=== PATIENT | male | born 1995 | race Two or more races ===

== ENCOUNTER 2018-11-09 20:53 | Emergency (ER) | payer MEDICAID, OTHER ==
[~2018-11-09] VITALS: Ht 172.7 cm; Wt 69.5 kg
[~2018-11-09 20:53] MED LIST: SULF1TAB49 PO
[2018-11-09] MEDS ORDERED: ondansetron/PF 4mg/2ml inj IV ONE (21:10)
[2018-11-09] MEDS ORDERED: normal saline 1000ML IV soln IVB ONE (21:10)
[2018-11-09 21:35] LABS: MONOCYTES # (AUTO) 0.8 X10'3 (0-0.9)
[2018-11-09 21:36] LABS: BASOPHILS % (AUTO) 0.2 % (0-1); EOSINOPHILS % (AUTO) 0.1 % (0-6); HEMATOCRIT 52.4 % (42.0-52.0); LYMPHOCYTES # (AUTO) 0.6 X10'3 (1.1-4.8); LYMPHOCYTES % (AUTO) 4.5 % (21-51); MEAN CORPUSCULAR HEMOGLOBIN 32.1 PG (27.0-31.0); MEAN CORPUSCULAR VOLUME 91.9 FL (78-98); MEAN PLATELET VOLUME 10.1 FL (7.4-10.4); NEUTROPHILS # (AUTO) 12.1 X10'3 (1.8-7.7); NEUTROPHILS % (AUTO) 89.2 % (42-75); PLATELET COUNT 182 X10'3 (140-440); RED CELL DISTRIBUTION WIDTH 14.2 % (11.5-14.5); WHITE BLOOD COUNT 13.6 X10'3 (4.5-11.0)
[2018-11-09 21:48] LABS: ALANINE AMINOTRANSFERASE 52 U/L (12-78); ALBUMIN 5.7 G/DL (3.4-5.0); ALBUMIN/GLOBULIN RATIO 1.3 (1.1-1.5); ALKALINE PHOSPHATASE 82 IU/L (46-116); ANION GAP 17 (8-16); ASPARTATE AMINO TRANSFERASE 21 U/L (10-37); BLOOD UREA NITROGEN 21 MG/DL (7-18); BUN/CREATININE RATIO 10.7 (5.4-32.0); CHLORIDE 95 MMOL/L (99-107); CREATININE 1.96 MG/DL (0.60-1.10); GLUCOSE 132 MG/DL (70-104); MAGNESIUM 1.8 MG/DL (1.5-2.4); POTASSIUM 4.3 MMOL/L (3.5-5.1); SODIUM 137 MMOL/L (135-145); TOTAL CARBON DIOXIDE 25.3 MMOL/L (24-32); TOTAL PROTEIN 10.2 G/DL (6.4-8.2); eGFR 42 ML/MIN
[2018-11-09 22:13] LABS: HEMOGLOBIN 18.3 g/dl (14.0-17.9)
[2018-11-09] MEDS ORDERED: normal saline 1000ml 1,000 ML IV ONE (22:15)
[2018-11-09 23:29] VITALS: BP 127/81
== END 2018-11-09 23:31 | disposition home or self-care (01) ==
LOC: ER 20:53
DX: E86.0 Dehydration (principal); N28.9 Disorder of kidney and ureter, unspecified; F12.90 Cannabis use, unspecified, uncomplicated
CPT/HCPCS: 36415; 80053; 83735; 85025; 96374; 99283; J2405; J7030

== ENCOUNTER 2020-02-16 16:50 | Emergency (ER) | payer MEDICAID ==
--- NOTE | 2020-02-16 17:40 | NUR ---
patient was seen and assessed by provider
== END 2020-02-16 17:40 | disposition home or self-care (01) ==
LOC: ER 16:51
DX: R05 Cough (principal); R43.8 Other disturbances of smell and taste; R50.9 Fever, unspecified; Z20.828 Contact with and (suspected) exposure to other viral communicable diseases; F12.90 Cannabis use, unspecified, uncomplicated; F19.90 Other psychoactive substance use, unspecified, uncomplicated; Z79.2 Long term (current) use of antibiotics
CPT/HCPCS: 36415; 87635; 99283

== ENCOUNTER 2020-03-17 12:37 | Emergency (ER) | payer MEDICAID ==
[~2020-03-17] VITALS: Ht 172.7 cm; Wt 71.0 kg
[2020-03-17 12:54] VITALS: BP 143/94
[2020-03-17] MEDS ORDERED: cyclobenzaprine 10mg tablet PO ONE (13:25)
[2020-03-17] MEDS ORDERED: ibuprofen tablet 400 MG TABLET PO ONE (13:25)
[2020-03-17] MEDS ORDERED: ibuprofen 200mg tablet PO ONE (13:30)
[2020-03-17] MEDS ORDERED: ALBU8HFA PO (13:30)
== END 2020-03-17 13:36 | disposition home or self-care (01) ==
LOC: ER 12:38
DX: S39.012A Strain of muscle, fascia and tendon of lower back, initial encounter (principal); F12.10 Cannabis abuse, uncomplicated; W18.39XA Other fall on same level, initial encounter; Y93.89 Activity, other specified; Y92.89 Other specified places as the place of occurrence of the external cause; Y99.8 Other external cause status
CPT/HCPCS: 99283

== ENCOUNTER 2020-05-09 19:04 | Emergency (ER) | payer MEDICAID ==
[~2020-05-09] VITALS: Ht 170.2 cm; Wt 77.3 kg
--- NOTE | 2020-05-09 19:23 | NUR ---
PT O2 SAT WAS 88% ON RA WHEN PT ARRIVED APPLIED 3L O2 VIA NC RAISED O2 SAT TO 90% CHARGE NURSE IS AWARE. WAITING ON ROOM FOR PT TRIAGE NURSE IS MONITORING PT UNTIL ROOM IS AVAILABLE IN MAIN ED
[2020-05-09] MEDS ORDERED: predniSONE 20 mg tablet PO ONE (19:35)
[2020-05-09] MEDS ORDERED: albuterol 2.5 MG/3 ML nebule NEB ONE ×2 (19:35→20:25)
--- NOTE | 2020-05-09 19:37 | NUR ---
RT PAGED AWAITING RESPONSE
--- NOTE | 2020-05-09 19:40 | NUR ---
DR DOUGLAS AT [facility] VERIFIED CXR
--- NOTE | 2020-05-09 19:43 | NUR ---
RT TREATMENT INITIATED
[2020-05-09] MEDS ORDERED: PRED20TA PO (20:04)
[2020-05-09] MEDS ORDERED: ALBU6.7H9 INH (20:04)
[2020-05-09 20:23] VITALS: BP 128/84
== END 2020-05-09 20:26 | disposition home or self-care (01) ==
LOC: ER 19:05
DX: J45.901 Unspecified asthma with (acute) exacerbation (principal); R06.02 Shortness of breath; F12.90 Cannabis use, unspecified, uncomplicated; F19.90 Other psychoactive substance use, unspecified, uncomplicated; Z79.2 Long term (current) use of antibiotics; Z79.899 Other long term (current) drug therapy
CPT/HCPCS: 71045; 94640; 99284; J7512; 94760

== ENCOUNTER 2020-09-02 05:31 | Emergency (ER) | payer MEDICAID, OTHER ==
[~2020-09-02] VITALS: Ht 170.2 cm; Wt 66.0 kg
[~2020-09-02 05:31] MED LIST changes: +ALBU6.7H9 INH
[2020-09-02 06:28] VITALS: BP 135/76
[2020-09-02] MEDS ORDERED: iohexol 300mg/ml 100ml inj. ONE (06:34)
== END 2020-09-02 08:24 | disposition home or self-care (01) ==
LOC: ER 05:31
DX: S02.2XXA Fracture of nasal bones, initial encounter for closed fracture (principal); S50.311A Abrasion of right elbow, initial encounter; R51.9 Headache, unspecified; R07.81 Pleurodynia; F12.90 Cannabis use, unspecified, uncomplicated; F19.90 Other psychoactive substance use, unspecified, uncomplicated; Z79.2 Long term (current) use of antibiotics; Z79.899 Other long term (current) drug therapy; V87.7XXA Person injured in collision between other specified motor vehicles (traffic), initial encounter; Y93.89 Activity, other specified; Y92.89 Other specified places as the place of occurrence of the external cause; Y99.8 Other external cause status
CPT/HCPCS: 70450; 70486; 71260; 72125; 74177; 99285; Q9967

== ENCOUNTER 2021-01-03 23:19 | Emergency (ER) | payer MEDICAID, OTHER ==
[~2021-01-03] VITALS: Ht 170.2 cm; Wt 63.6 kg
[2021-01-03 23:23] VITALS: BP 134/78
== END 2021-01-04 00:01 | disposition left against medical advice (07) ==
LOC: ER 23:20
DX: Z00.8 Encounter for other general examination (principal); Z53.21 Procedure and treatment not carried out due to patient leaving prior to being seen by health care provider

== ENCOUNTER 2021-01-14 18:33 | Emergency (ER) | payer MEDICAID ==
[~2021-01-14] VITALS: Ht 170.2 cm; Wt 65.0 kg
[2021-01-14 18:37] VITALS: BP 135/83
[2021-01-14] MEDS ORDERED: MUPI22OI30 TOP (18:58)
[2021-01-14] MEDS ORDERED: CEPH250T PO (18:58)
== END 2021-01-14 19:12 | disposition home or self-care (01) ==
LOC: ER 18:34
DX: L03.116 Cellulitis of left lower limb (principal); F12.90 Cannabis use, unspecified, uncomplicated; F15.90 Other stimulant use, unspecified, uncomplicated; Z79.2 Long term (current) use of antibiotics; Z79.899 Other long term (current) drug therapy
CPT/HCPCS: 72170; 74018; 99284